=== PATIENT | male | born 1960 | race African-American/Black ===

== ENCOUNTER 2020-03-27 10:22 | Emergency (ER) | payer OTHER ==
[~2020-03-27] VITALS: Ht 172.7 cm; Wt 90.9 kg
[~2020-03-27 10:22] MED LIST: NOCURR
[2020-03-27] MEDS ORDERED: ACETAMINOPHEN 325 MG TABLET PO ONE (11:00)
[2020-03-27] MEDS ORDERED: BACITRACIN 0.9 GM PACKET OINTMENT TP ONE (11:00)
[2020-03-27] MEDS ORDERED: PERTUSS(ACELL),DIPH,TET VAC/PF 0.5 ML VIAL IM ONE (11:00)
[2020-03-27 11:15] VITALS: BP 154/86
== END 2020-03-27 12:27 | disposition home or self-care (01) ==
LOC: EMS 10:22
DX: S51.001A Unspecified open wound of right elbow, initial encounter (principal); W22.8XXA Striking against or struck by other objects, initial encounter; Y93.89 Activity, other specified; Y92.89 Other specified places as the place of occurrence of the external cause; Y99.8 Other external cause status
CPT/HCPCS: 90471; 90715; 99406

== ENCOUNTER 2020-04-09 10:25 | Inpatient (IN) | payer OTHER ==
[~2020-04-09] VITALS: Ht 172.7 cm; Wt 100.7 kg
[2020-04-09 12:24] LABS: BASOPHILS % (AUTO) 0.3 % (0.0-2.0); EOSINOPHILS % (AUTO) 0 % (1.0-6.0); HEMATOCRIT 46.1 % (41-53); HEMOGLOBIN 15.3 g/dL (13.5-17.5); LYMPHOCYTES # (AUTO) 0.4 K/uL (1.0-4.8); LYMPHOCYTES % (AUTO) 2.1 % (22.0-44.0); MEAN CORPUSCULAR HEMOGLOBIN 30.4 pg (26.0-34.0); MEAN CORPUSCULAR HGB CONC 33.2 G/dL (31.0-37.0); MEAN CORPUSCULAR VOLUME 92 fL (80-100); MONOCYTES # (AUTO) 0.7 K/uL (0.1-1.0); MONOCYTES % (AUTO) 3.3 % (2.0-9.0); NEUTROPHILS # (AUTO) 19.3 K/uL (1.8-7.7); PLATELET COUNT (AUTO) 322 K/uL (150-450); RED BLOOD CELL COUNT(AUTO) 5.03 MIL/uL (4.50-5.90); RED CELL DISTRIBUTION WIDTH 14.5 % (11.5-14.5)
[2020-04-09 12:26] LABS: NEUTROPHILS % (AUTO) 94.3 % (40.0-70.0)
[2020-04-09 12:33] LABS: ANION GAP 8 mmol/L (8-16); CALCIUM, TOTAL 9.6 mg/dL (8.8-10.5); CARBON DIOXIDE 26 mmol/L (22-29); CHLORIDE 95 mmol/L (98-107); CREATININE 1.42 mg/dL (0.60-1.30); GLOMERULAR FILTR. RATE CALC > 60 mL/min (>60); GLUCOSE,RANDOM 297 mg/dL (70-110); POTASSIUM 3.9 mmol/L (3.5-5.1); SODIUM SERUM 129 mmol/L (136-145); UREA NITROGEN, BLOOD 10 mg/dL (7-18)
[2020-04-09 12:39] LABS: ALANINE AMINOTRANSFERASE 29 U/L (12-78); ALBUMIN 3.7 g/dL (3.4-5.0); ALKALINE PHOSPHATASE 84 U/L (46-116); ASPARTATE AMINOTRANSFERASE 13 U/L (15-37); BILIRUBIN,TOTAL 0.5 mg/dL (0.1-1.0); TOTAL PROTEIN, SERUM 8.8 g/dL (6.4-8.2)
[2020-04-09 12:44] LABS: LACTIC ACID 1.9 mmol/L (0.4-2.0)
[2020-04-09] MEDS ORDERED: VANCOMYCIN HCL 1 GM/D5% WATER 200 ML IV ONE (13:15)
[2020-04-09] MEDS ORDERED: SODIUM CHLORIDE 0.9% 1,000 ML IV ONE ×3 (13:15→16:00)
[2020-04-09] MEDS ORDERED: PIPERACILLIN/TAZO 3.375 GM/D5W 50 ML IV ONE (13:15)
[2020-04-09] MEDS ORDERED: SODIUM CHLORIDE 0.9% 100 ML ONE (13:19)
[2020-04-09] MEDS ORDERED: IOVERSOL 350 MG/ML 100 ML VIAL ONE (13:19)
[2020-04-09] MEDS ORDERED: MORPHINE SULFATE 2 MG/ML SYRINGE IVP PRN (13:30)
[2020-04-09] MEDS ORDERED: DEXTROSE 50%-WATER 25 GM/50 ML SYRINGE IVP PRN (13:30)
[2020-04-09] MEDS: HEPARIN SODIUM,PORCINE 5,000 UNITS/ML VIAL SQ SCH ×2 (15:32→23:15)
[2020-04-09 16:29] LABS: COVID AG,FIA SOURCE NASAL SWAB
[2020-04-09 16:39] LABS: APPEARANCE,URINE CLEAR (CLEAR); BILIRUBIN,URINE NEGATIVE (NEGATIVE); GLUCOSE, URINE (UA) >=1000 mg/dL (NEGATIVE); KETONES,URINE NEGATIVE (NEGATIVE); LEUKOCYTE ESTERASE ,URINE NEGATIVE (NEGATIVE); NITRATE,URINE NEGATIVE (NEGATIVE); OCCULT BLOOD,URINE TRACE (NEGATIVE); PH,URINE 5.5 (5.0-8.0); PROTEIN,URINE POS 1+ (NEGATIVE); UROBILINOGEN,URINE 0.2 mg/dL (<=1.0)
[2020-04-09 16:43] LABS: AMPHET/METH SCREEN,URINE POSITIVE (NEGATIVE); BARBITURATE SCREEN, URINE NEGATIVE (NEGATIVE); BENZODIAZEPINES SCREEN,URINE NEGATIVE (NEGATIVE); CANNABINOID SCREEN,URINE POSITIVE (NEGATIVE); COCAINE SCREEN,URINE NEGATIVE (NEGATIVE); METHADONE SCREEN, URINE NEGATIVE (NEGATIVE); OPIATE SCREEN,URINE NEGATIVE (NEGATIVE)
[2020-04-09 16:44] LABS: PHENCYCLIDINE SCREEN,URINE NEGATIVE (NEGATIVE)
[2020-04-09 16:51] LABS: BACTERIA,URINE Rare /HPF (None Seen); SQUAMOUS EPITHELIAL CELL,UR Rare /LPF (None Seen); WBC,URINE 0-2 /HPF (0-5)
[2020-04-09] MEDS ORDERED: FLUTICASONE/SALMETEROL 250-50 MCG/INH INHALER [60] IH ONE (17:30)
[2020-04-09] MEDS: PIPERACILLIN/TAZO 3.375 GM/D5W 50 ML IV SCH (19:53)
[2020-04-09] MEDS: VANCOMYCIN HCL 1 GM/D5% WATER 200 ML IV SCH ×2 (21:00→22:58)
[2020-04-09 21:38] VITALS: BP 157/92
[2020-04-09] MEDS: DOCUSATE SODIUM 100 MG CAPSULE PO SCH (22:57)
[2020-04-09] MEDS: ACETAMINOPHEN 325 MG TABLET PO PRN (23:15)
[2020-04-09] MEDS: INSULIN LISPRO 100 UNITS/ML SQ PRN (23:16)
[2020-04-09 23:41] LABS: GLUCOMETER DEV NAME(LOC) 6N.1; GLUCOSE,POINT OF CARE 288 MG/DL (70-110)
[2020-04-10 00:20] VITALS: BP 132/69
[2020-04-10] MEDS: PIPERACILLIN/TAZO 3.375 GM/D5W 50 ML IV SCH ×4 (03:08→21:02)
[2020-04-10 05:48] VITALS: BP 121/79
[2020-04-10] MEDS: ACETAMINOPHEN 325 MG TABLET PO PRN ×2 (06:05→15:30)
[2020-04-10] MEDS: INSULIN LISPRO 100 UNITS/ML SQ PRN ×4 (06:06→19:36)
[2020-04-10 06:57] LABS: GLUCOMETER DEV NAME(LOC) 6S.1; GLUCOSE,POINT OF CARE 188 MG/DL (70-110)
[2020-04-10 07:06] LABS: BASOPHILS % (AUTO) 0.7 % (0.0-2.0); EOSINOPHILS % (AUTO) 0.1 % (1.0-6.0); HEMATOCRIT 40.4 % (41-53); HEMOGLOBIN 13.5 g/dL (13.5-17.5); LYMPHOCYTES # (AUTO) 0.7 K/uL (1.0-4.8); LYMPHOCYTES % (AUTO) 3.9 % (22.0-44.0); MEAN CORPUSCULAR HEMOGLOBIN 30.5 pg (26.0-34.0); MEAN CORPUSCULAR HGB CONC 33.4 G/dL (31.0-37.0); MEAN CORPUSCULAR VOLUME 91 fL (80-100); MONOCYTES # (AUTO) 0.8 K/uL (0.1-1.0); MONOCYTES % (AUTO) 4.6 % (2.0-9.0); NEUTROPHILS # (AUTO) 16.5 K/uL (1.8-7.7); PLATELET COUNT (AUTO) 271 K/uL (150-450); RED BLOOD CELL COUNT(AUTO) 4.44 MIL/uL (4.50-5.90); RED CELL DISTRIBUTION WIDTH 14.6 % (11.5-14.5)
[2020-04-10 07:11] LABS: NEUTROPHILS % (AUTO) 90.7 % (40.0-70.0)
[2020-04-10 07:16] LABS: ANION GAP 14 mmol/L (8-16); CALCIUM, TOTAL 8.6 mg/dL (8.8-10.5); CARBON DIOXIDE 22 mmol/L (22-29); CHLORIDE 97 mmol/L (98-107); CREATININE 1.27 mg/dL (0.60-1.30); GLOMERULAR FILTR. RATE CALC > 60 mL/min (>60); GLUCOSE,RANDOM 176 mg/dL (70-110); POTASSIUM 3.4 mmol/L (3.5-5.1); SODIUM SERUM 133 mmol/L (136-145); UREA NITROGEN, BLOOD 9 mg/dL (7-18)
[2020-04-10 08:26] VITALS: BP 114/62
[2020-04-10] MEDS: FAMOTIDINE 20 MG TABLET PO SCH (08:41)
[2020-04-10] MEDS: ASPIRIN 81 MG CHEWABLE TABLET PO SCH (08:41)
[2020-04-10] MEDS: HEPARIN SODIUM,PORCINE 5,000 UNITS/ML VIAL SQ SCH ×2 (08:42→15:30)
[2020-04-10] MEDS: DOCUSATE SODIUM 100 MG CAPSULE PO SCH ×2 (08:42→21:01)
[2020-04-10] MEDS ORDERED: POTASSIUM CHL 10 MEQ/WATER 50 ML IV PRN (09:00)
[2020-04-10] MEDS ORDERED: POTASSIUM CHLORIDE 20 MEQ ER TABLET PO PRN (09:00)
[2020-04-10] MEDS: VANCOMYCIN HCL 1 GM/D5% WATER 200 ML IV SCH ×2 (10:00→21:31)
[2020-04-10] MEDS: SODIUM CHLORIDE 0.9% 1,000 ML IV SCH ×2 (15:17→17:00)
[2020-04-10 16:20] VITALS: BP 140/77
[2020-04-10 17:36] LABS: GLUCOMETER DEV NAME(LOC) 6N.2; GLUCOSE,POINT OF CARE 189 MG/DL (70-110)
[2020-04-10 18:16] LABS: GLUCOMETER DEV NAME(LOC) 6N.1; GLUCOSE,POINT OF CARE 167 MG/DL (70-110)
[2020-04-10 19:30] VITALS: BP 115/65
[2020-04-10 21:20] LABS: GLUCOMETER DEV NAME(LOC) 6N.2; GLUCOSE,POINT OF CARE 194 MG/DL (70-110)
[2020-04-10 22:14] LABS: GLUCOMETER DEV NAME(LOC) 6S.1; GLUCOSE,POINT OF CARE 207 MG/DL (70-110)
[2020-04-10 23:34] VITALS: BP 146/76
[2020-04-11] MEDS: HEPARIN SODIUM,PORCINE 5,000 UNITS/ML VIAL SQ SCH ×4 (00:24→23:18)
[2020-04-11] MEDS: ACETAMINOPHEN 325 MG TABLET PO PRN ×2 (00:25→15:24)
[2020-04-11] MEDS: OxyCODONE HCL/ACETAMINOPHEN 5-325 MG TABLET PO PRN (00:28)
[2020-04-11 05:12] VITALS: BP 128/72
[2020-04-11] MEDS: INSULIN LISPRO 100 UNITS/ML SQ PRN ×4 (06:58→21:48)
[2020-04-11 07:13] LABS: GLUCOMETER DEV NAME(LOC) 6N.2; GLUCOSE,POINT OF CARE 154 MG/DL (70-110)
[2020-04-11] MEDS: PIPERACILLIN/TAZO 3.375 GM/D5W 50 ML IV SCH ×3 (08:27→21:46)
[2020-04-11] MEDS: DOCUSATE SODIUM 100 MG CAPSULE PO SCH ×3 (08:28→21:46)
[2020-04-11] MEDS: ASPIRIN 81 MG CHEWABLE TABLET PO SCH (08:28)
[2020-04-11] MEDS: FAMOTIDINE 20 MG TABLET PO SCH (08:28)
[2020-04-11 09:02] VITALS: BP 113/98
[2020-04-11] MEDS: VANCOMYCIN HCL 1 GM/D5% WATER 200 ML IV SCH (11:26)
[2020-04-11 13:18] LABS: BASOPHILS % (AUTO) 0.9 % (0.0-2.0); EOSINOPHILS % (AUTO) 0.3 % (1.0-6.0); HEMATOCRIT 42.7 % (41-53); HEMOGLOBIN 14.1 g/dL (13.5-17.5); LYMPHOCYTES # (AUTO) 1.1 K/uL (1.0-4.8); LYMPHOCYTES % (AUTO) 9.7 % (22.0-44.0); MEAN CORPUSCULAR HEMOGLOBIN 30.3 pg (26.0-34.0); MEAN CORPUSCULAR HGB CONC 33.1 G/dL (31.0-37.0); MEAN CORPUSCULAR VOLUME 92 fL (80-100); MONOCYTES # (AUTO) 0.8 K/uL (0.1-1.0); MONOCYTES % (AUTO) 6.6 % (2.0-9.0); NEUTROPHILS # (AUTO) 9.5 K/uL (1.8-7.7); NEUTROPHILS % (AUTO) 82.5 % (40.0-70.0); PLATELET COUNT (AUTO) 276 K/uL (150-450); RED BLOOD CELL COUNT(AUTO) 4.65 MIL/uL (4.50-5.90); RED CELL DISTRIBUTION WIDTH 14.6 % (11.5-14.5)
[2020-04-11] MEDS: SODIUM CHLORIDE 0.9% 1,000 ML IV SCH ×2 (13:28→23:18)
[2020-04-11 13:31] LABS: ANION GAP 10 mmol/L (8-16); CALCIUM, TOTAL 8.8 mg/dL (8.8-10.5); CARBON DIOXIDE 23 mmol/L (22-29); CHLORIDE 97 mmol/L (98-107); CREATININE 1.13 mg/dL (0.60-1.30); GLOMERULAR FILTR. RATE CALC > 60 mL/min (>60); GLUCOSE,RANDOM 159 mg/dL (70-110); POTASSIUM 3.6 mmol/L (3.5-5.1); SODIUM SERUM 130 mmol/L (136-145); UREA NITROGEN, BLOOD 12 mg/dL (7-18)
[2020-04-11 15:35] VITALS: BP 112/65
[2020-04-11 20:22] VITALS: BP 126/66
[2020-04-11 21:40] LABS: GLUCOMETER DEV NAME(LOC) 6S.1; GLUCOSE,POINT OF CARE 167 MG/DL (70-110)
[2020-04-11 21:40] LABS: GLUCOMETER DEV NAME(LOC) 6S.1; GLUCOSE,POINT OF CARE 164 MG/DL (70-110)
[2020-04-11] MEDS: VANCOMYCIN HCL 1.25 GM in DEXTROSE 5%-WATER 250 ML IV SCH (21:46)
[2020-04-12 00:06] VITALS: BP 128/65
[2020-04-12] MEDS: PIPERACILLIN/TAZO 3.375 GM/D5W 50 ML IV SCH ×4 (03:17→20:09)
[2020-04-12 05:26] VITALS: BP 140/86
[2020-04-12] MEDS: OxyCODONE HCL/ACETAMINOPHEN 5-325 MG TABLET PO PRN (05:39)
[2020-04-12] MEDS: INSULIN LISPRO 100 UNITS/ML SQ PRN ×4 (05:40→21:19)
[2020-04-12 07:47] LABS: GLUCOMETER DEV NAME(LOC) 6N.2; GLUCOSE,POINT OF CARE 221 MG/DL (70-110)
[2020-04-12 07:47] LABS: GLUCOMETER DEV NAME(LOC) 6S.1; GLUCOSE,POINT OF CARE 174 MG/DL (70-110)
[2020-04-12 08:22] VITALS: BP 122/67
[2020-04-12 08:26] LABS: ANION GAP 14 mmol/L (8-16); CALCIUM, TOTAL 8.6 mg/dL (8.8-10.5); CARBON DIOXIDE 21 mmol/L (22-29); CHLORIDE 98 mmol/L (98-107); CREATININE 1.09 mg/dL (0.60-1.30); GLOMERULAR FILTR. RATE CALC > 60 mL/min (>60); GLUCOSE,RANDOM 154 mg/dL (70-110); POTASSIUM 3.6 mmol/L (3.5-5.1); SODIUM SERUM 133 mmol/L (136-145); UREA NITROGEN, BLOOD 11 mg/dL (7-18)
[2020-04-12] MEDS: HEPARIN SODIUM,PORCINE 5,000 UNITS/ML VIAL SQ SCH ×2 (09:14→15:33)
[2020-04-12] MEDS: DOCUSATE SODIUM 100 MG CAPSULE PO SCH ×2 (09:14→21:00)
[2020-04-12] MEDS: FAMOTIDINE 20 MG TABLET PO SCH (09:14)
[2020-04-12] MEDS: ASPIRIN 81 MG CHEWABLE TABLET PO SCH (09:14)
[2020-04-12] MEDS: SODIUM CHLORIDE 0.9% 1,000 ML IV SCH ×3 (09:16→20:09)
[2020-04-12] MEDS: VANCOMYCIN HCL 1.25 GM in DEXTROSE 5%-WATER 250 ML IV SCH ×2 (10:13→21:09)
[2020-04-12 12:40] LABS: GLUCOMETER DEV NAME(LOC) 6S.1; GLUCOSE,POINT OF CARE 263 MG/DL (70-110)
[2020-04-12 14:46] VITALS: BP 135/77
[2020-04-12 20:24] VITALS: BP 144/72
[2020-04-12 23:16] LABS: GLUCOMETER DEV NAME(LOC) 6N.2; GLUCOSE,POINT OF CARE 197 MG/DL (70-110)
[2020-04-12 23:16] LABS: GLUCOMETER DEV NAME(LOC) 6N.2; GLUCOSE,POINT OF CARE 211 MG/DL (70-110)
[2020-04-12 23:46] VITALS: BP 133/65
[2020-04-13] MEDS: HEPARIN SODIUM,PORCINE 5,000 UNITS/ML VIAL SQ SCH ×2 (00:12→08:49)
[2020-04-13] MEDS: ACETAMINOPHEN 325 MG TABLET PO PRN (00:12)
[2020-04-13] MEDS: PIPERACILLIN/TAZO 3.375 GM/D5W 50 ML IV SCH ×2 (03:30→08:50)
[2020-04-13 04:38] VITALS: BP 115/70
[2020-04-13 07:47] VITALS: BP 118/73
[2020-04-13 08:14] LABS: GLUCOMETER DEV NAME(LOC) 6N.2; GLUCOSE,POINT OF CARE 157 MG/DL (70-110)
[2020-04-13 08:48] LABS: BASOPHILS % (AUTO) 0.8 % (0.0-2.0); EOSINOPHILS % (AUTO) 1.9 % (1.0-6.0); HEMATOCRIT 41.8 % (41-53); HEMOGLOBIN 13.9 g/dL (13.5-17.5); LYMPHOCYTES # (AUTO) 1.5 K/uL (1.0-4.8); LYMPHOCYTES % (AUTO) 19.4 % (22.0-44.0); MEAN CORPUSCULAR HEMOGLOBIN 30.7 pg (26.0-34.0); MEAN CORPUSCULAR HGB CONC 33.3 G/dL (31.0-37.0); MEAN CORPUSCULAR VOLUME 92 fL (80-100); MONOCYTES # (AUTO) 0.7 K/uL (0.1-1.0); MONOCYTES % (AUTO) 8.8 % (2.0-9.0); NEUTROPHILS # (AUTO) 5.2 K/uL (1.8-7.7); NEUTROPHILS % (AUTO) 69.1 % (40.0-70.0); PLATELET COUNT (AUTO) 310 K/uL (150-450); RED BLOOD CELL COUNT(AUTO) 4.54 MIL/uL (4.50-5.90); RED CELL DISTRIBUTION WIDTH 14.2 % (11.5-14.5)
[2020-04-13] MEDS: DOCUSATE SODIUM 100 MG CAPSULE PO SCH (08:49)
[2020-04-13] MEDS: FAMOTIDINE 20 MG TABLET PO SCH (08:49)
[2020-04-13] MEDS: ASPIRIN 81 MG CHEWABLE TABLET PO SCH (08:49)
[2020-04-13 09:14] LABS: ANION GAP 12 mmol/L (8-16); CALCIUM, TOTAL 8.6 mg/dL (8.8-10.5); CARBON DIOXIDE 22 mmol/L (22-29); CHLORIDE 101 mmol/L (98-107); CREATININE 0.95 mg/dL (0.60-1.30); GLOMERULAR FILTR. RATE CALC > 60 mL/min (>60); GLUCOSE,RANDOM 177 mg/dL (70-110); POTASSIUM 3.7 mmol/L (3.5-5.1); SODIUM SERUM 135 mmol/L (136-145); UREA NITROGEN, BLOOD 10 mg/dL (7-18); VANCOMYCIN,RANDOM 9.5 mcg/mL (25.0-50.0)
[2020-04-13] MEDS: VANCOMYCIN HCL 1.25 GM in DEXTROSE 5%-WATER 250 ML IV SCH (09:54)
[2020-04-13] MEDS ORDERED: BACTDSB PO (11:54)
[2020-04-13] MEDS ORDERED: METF-960 PO (11:55)
[2020-04-13] MEDS: INSULIN LISPRO 100 UNITS/ML SQ PRN ×2 (12:27→17:41)
[2020-04-13 12:30] VITALS: BP 117/73
[2020-04-13 15:44] VITALS: BP 138/81
[2020-04-13] MEDS ORDERED: VANCOMYCIN HCL 1 GM/D5% WATER 200 ML IV SCH (16:00)
[2020-04-13 20:03] LABS: GLUCOMETER DEV NAME(LOC) 6S.1; GLUCOSE,POINT OF CARE 177 MG/DL (70-110)
[2020-04-13 20:03] LABS: GLUCOMETER DEV NAME(LOC) 6S.1; GLUCOSE,POINT OF CARE 260 MG/DL (70-110)
== END 2020-04-13 18:20 | disposition home or self-care (01) | DRG 720 ==
LOC: EMS 10:29 → 6N 13:27
PROVIDERS: ADMIT Internal Medicine; ATTEND Internal Medicine
DX: A41.9 Sepsis, unspecified organism (principal); U07.1 COVID-19; L03.113 Cellulitis of right upper limb; N17.9 Acute kidney failure, unspecified; E87.1 Hypo-osmolality and hyponatremia; E11.65 Type 2 diabetes mellitus with hyperglycemia; J12.82 Pneumonia due to coronavirus disease 2019; F12.90 Cannabis use, unspecified, uncomplicated; F19.10 Other psychoactive substance abuse, uncomplicated; Z79.899 Other long term (current) drug therapy; Z79.82 Long term (current) use of aspirin; Z91.19 Patient's noncompliance with other medical treatment and regimen
CPT/HCPCS: 73201; 73218; 83605; 86140; 87040; 87426; 97165; J1644; J2543; J3370; J3535; J7030; J7050; J7060; 36415-L1; 36415-TC; 71045-TC; 80202-TC; U0003

== ENCOUNTER 2020-10-04 12:37 | Emergency (ER) | payer OTHER ==
[~2020-10-04] VITALS: Ht 172.7 cm; Wt 97.7 kg
[~2020-10-04 12:37] MED LIST changes: +BACTDSB PO; +METF-960 PO; -NOCURR
[2020-10-04 12:48] VITALS: BP 130/73
[2020-10-04] MEDS ORDERED: SULFAMETHOX/TRIMETH DS 800-160 MG/TABLET PO ONE (16:00)
[2020-10-04] MEDS ORDERED: LIDOCAINE/PF 1% 2 ML VIAL IM ONE (16:00)
[2020-10-04] MEDS ORDERED: CefTRIAXone SODIUM 1 GM/VIAL IM ONE (16:00)
== END 2020-10-04 17:50 | disposition home or self-care (01) ==
LOC: EMS 12:40
DX: L03.311 Cellulitis of abdominal wall (principal); F12.90 Cannabis use, unspecified, uncomplicated; F15.90 Other stimulant use, unspecified, uncomplicated; Z79.84 Long term (current) use of oral hypoglycemic drugs
CPT/HCPCS: 96372; 99283; J0696; J3490

== ENCOUNTER 2020-10-10 20:02 | Emergency (ER) | payer OTHER ==
[~2020-10-10] VITALS: Ht 172.7 cm; Wt 100.0 kg
[~2020-10-10 20:02] MED LIST changes: -BACTDSB PO
[2020-10-10 20:22] VITALS: BP 141/77
[2020-10-10 20:43] LABS: GLUCOSE,POINT OF CARE 202 MG/DL (70-110)
== END 2020-10-10 20:48 | disposition home or self-care (01) ==
LOC: EMS 20:04
DX: L02.211 Cutaneous abscess of abdominal wall (principal); F12.90 Cannabis use, unspecified, uncomplicated; F15.90 Other stimulant use, unspecified, uncomplicated; E11.9 Type 2 diabetes mellitus without complications; Z79.84 Long term (current) use of oral hypoglycemic drugs
CPT/HCPCS: 82948; 82962; 99282

== ENCOUNTER 2020-11-21 07:56 | Emergency (ER) | payer OTHER ==
[~2020-11-21] VITALS: Ht 172.7 cm; Wt 90.9 kg
[2020-11-21] MEDS ORDERED: LIDOCAINE 1% 10 ML VIAL ID ONE (09:15)
[2020-11-21] MEDS ORDERED: SULFAMETHOX/TRIMETH DS 800-160 MG/TABLET PO ONE (10:15)
[2020-11-21] MEDS ORDERED: ACETAMINOPHEN 325 MG TABLET PO ONE (10:15)
[2020-11-21] MEDS ORDERED: CefTRIAXone SODIUM 1 GM/VIAL IM ONE (10:15)
[2020-11-21] MEDS ORDERED: LIDOCAINE/PF 1% 2 ML VIAL IM ONE (10:15)
[2020-11-21 10:58] VITALS: BP 126/3
== END 2020-11-21 11:06 | disposition home or self-care (01) ==
LOC: EMS 07:58
DX: L02.416 Cutaneous abscess of left lower limb (principal); L03.116 Cellulitis of left lower limb; E11.9 Type 2 diabetes mellitus without complications; F12.90 Cannabis use, unspecified, uncomplicated; F19.90 Other psychoactive substance use, unspecified, uncomplicated; Z79.84 Long term (current) use of oral hypoglycemic drugs
CPT/HCPCS: 10060; 82962; 96372; 99284; J0696; J3490 ×2

== ENCOUNTER 2020-11-22 13:19 | Emergency (ER) | payer OTHER ==
[~2020-11-22] VITALS: Ht 172.7 cm; Wt 90.9 kg
[2020-11-22 13:23] VITALS: BP 127/70
== END 2020-11-22 14:40 | disposition home or self-care (01) ==
LOC: EMS 13:23
DX: L02.416 Cutaneous abscess of left lower limb (principal); E11.9 Type 2 diabetes mellitus without complications; F12.90 Cannabis use, unspecified, uncomplicated; F19.90 Other psychoactive substance use, unspecified, uncomplicated; Z79.84 Long term (current) use of oral hypoglycemic drugs
CPT/HCPCS: 82962; 99282

== ENCOUNTER 2020-11-24 23:42 | Emergency (ER) | payer OTHER ==
[~2020-11-24] VITALS: Ht 172.7 cm; Wt 90.9 kg
[2020-11-25 00:41] VITALS: BP 127/81
== END 2020-11-25 04:24 | disposition left against medical advice (07) ==
LOC: EMS 23:45
DX: Z53.21 Procedure and treatment not carried out due to patient leaving prior to being seen by health care provider (principal)

== ENCOUNTER 2021-01-04 22:46 | Emergency (ER) | payer OTHER ==
[~2021-01-04] VITALS: Ht 172.7 cm; Wt 90.9 kg
[2021-01-04 22:52] VITALS: BP 154/74
[2021-01-04] MEDS ORDERED: ACETAMINOPHEN 500 MG TABLET PO ONE (23:30)
[2021-01-04] MEDS ORDERED: ValACYclovir HCL 500 MG TABLET PO ONE (23:30)
[2021-01-04] MEDS ORDERED: DOXYCYCLINE HYCLATE 100 MG TABLET PO ONE (23:30)
[2021-01-04] MEDS ORDERED: CefTRIAXone SODIUM 1 GM/VIAL IM ONE (23:30)
[2021-01-04] MEDS ORDERED: LIDOCAINE/PF 1% 2 ML VIAL IM ONE (23:30)
[2021-01-04 23:35] LABS: APPEARANCE,URINE CLEAR (CLEAR); BILIRUBIN,URINE NEGATIVE (NEGATIVE); GLUCOSE, URINE (UA) >=1000 mg/dL (NEGATIVE); KETONES,URINE NEGATIVE (NEGATIVE); LEUKOCYTE ESTERASE ,URINE NEGATIVE (NEGATIVE); NITRATE,URINE NEGATIVE (NEGATIVE); OCCULT BLOOD,URINE NEGATIVE (NEGATIVE); PH,URINE 5.5 (5.0-8.0); PROTEIN,URINE NEGATIVE (NEGATIVE); UROBILINOGEN,URINE 0.2 mg/dL (<=1.0)
[2021-01-04 23:38] LABS: BACTERIA,URINE Rare /HPF (None Seen); RBC,URINE None Seen /HPF (0-2); WBC,URINE 0-2 /HPF (0-5)
== END 2021-01-05 00:21 | disposition home or self-care (01) ==
LOC: EMS 22:47
DX: B00.9 Herpesviral infection, unspecified (principal); E11.9 Type 2 diabetes mellitus without complications; F12.90 Cannabis use, unspecified, uncomplicated; F19.90 Other psychoactive substance use, unspecified, uncomplicated; Z79.84 Long term (current) use of oral hypoglycemic drugs
CPT/HCPCS: 81001; 87491; 87591; 96372; 99284; J0696; J3490

== ENCOUNTER 2021-01-16 00:27 | Emergency (ER) | payer OTHER ==
[~2021-01-16] VITALS: Ht 172.7 cm; Wt 90.9 kg
[2021-01-16 00:56] VITALS: BP 113/67
== END 2021-01-16 01:48 | disposition home or self-care (01) ==
LOC: EMS 00:29
DX: B00.9 Herpesviral infection, unspecified (principal); E11.9 Type 2 diabetes mellitus without complications; F12.90 Cannabis use, unspecified, uncomplicated; F19.90 Other psychoactive substance use, unspecified, uncomplicated; Z79.84 Long term (current) use of oral hypoglycemic drugs
CPT/HCPCS: 99281; Z7502

== ENCOUNTER 2021-04-06 22:30 | Emergency (ER) | payer OTHER ==
[~2021-04-06] VITALS: Ht 170.2 cm; Wt 86.0 kg
[~2021-04-06 22:30] MED LIST changes: +METF-1211 PO; -METF-960 PO
[2021-04-06] MEDS ORDERED: FLUORESCEIN SODIUM 1 MG STRIP ONE (23:27)
[2021-04-06] MEDS ORDERED: PROPARACAINE HCL 0.5% 15 ML OPHTHALMIC SOLUTION OD ONE (23:30)
[2021-04-07] MEDS ORDERED: NEOMYCIN/BACITRACIN/POLYMYXIN B 3.5 GM OPHTHALMIC OINTMENT OD ONE
[2021-04-07] MEDS ORDERED: SULFACETAMIDE SODIUM 10% 15 ML OPHTHALMIC SOLUTION OD ONE
[2021-04-07 00:09] VITALS: BP 123/85
== END 2021-04-07 00:15 | disposition home or self-care (01) ==
LOC: EMS 22:31
DX: S05.01XA Injury of conjunctiva and corneal abrasion without foreign body, right eye, initial encounter (principal); E11.9 Type 2 diabetes mellitus without complications; Z79.84 Long term (current) use of oral hypoglycemic drugs; F12.90 Cannabis use, unspecified, uncomplicated; F15.90 Other stimulant use, unspecified, uncomplicated; X58.XXXA Exposure to other specified factors, initial encounter; Y93.89 Activity, other specified; Y92.89 Other specified places as the place of occurrence of the external cause; Y99.8 Other external cause status
CPT/HCPCS: 99283

== ENCOUNTER 2023-04-17 22:46 | Emergency (ER) | payer OTHER ==
[~2023-04-17] VITALS: Ht 172.7 cm; Wt 93.2 kg
[~2023-04-17 22:46] MED LIST changes: +CLIN-26 PO; +LEVO750T68 PO
[2023-04-17 23:29] VITALS: TEMP 97.9
[2023-04-18 02:33] LABS: BASOPHILS % (AUTO) 0.8 % (0.0-2.0); EOSINOPHILS % (AUTO) 0.8 % (1.0-6.0); HEMATOCRIT 44.5 % (41-53); HEMOGLOBIN 15.3 g/dL (13.5-17.5); LYMPHOCYTES # (AUTO) 1.2 K/uL (1.0-4.8); LYMPHOCYTES % (AUTO) 14.2 % (22.0-44.0); MEAN CORPUSCULAR HEMOGLOBIN 32.1 pg (26.0-34.0); MEAN CORPUSCULAR HGB CONC 34.4 G/dL (31.0-37.0); MEAN CORPUSCULAR VOLUME 93 fL (80-100); MONOCYTES # (AUTO) 0.9 K/uL (0.1-1.0); MONOCYTES % (AUTO) 10.5 % (2.0-9.0); NEUTROPHILS # (AUTO) 6.4 K/uL (1.8-7.7); NEUTROPHILS % (AUTO) 73.7 % (40.0-70.0); PLATELET COUNT (AUTO) 279 K/uL (150-450); RED BLOOD CELL COUNT(AUTO) 4.77 MIL/uL (4.50-5.90); RED CELL DISTRIBUTION WIDTH 13.7 % (11.5-14.5); WHITE BLOOD COUNT (AUTO) 8.6 K/uL (4.5-11.0)
[2023-04-18 02:43] LABS: ANION GAP 11 mmol/L (8-16); CALCIUM, TOTAL 9.4 mg/dL (8.8-10.5); CARBON DIOXIDE 27 mmol/L (22-29); CHLORIDE 98 mmol/L (98-107); CREATININE 1.12 mg/dL (0.60-1.30); GLOMERULAR FILTR. RATE CALC > 60 mL/min (>60); GLUCOSE,RANDOM 277 mg/dL (70-110); SODIUM SERUM 136 mmol/L (136-145); UREA NITROGEN, BLOOD 12 mg/dL (7-18)
[2023-04-18 02:50] LABS: TROPONIN I-HIGH SENSITIVITY 47 ng/L (<76)
[2023-04-18 02:56] LABS: ALCOHOL, BLOOD (SERUM) < 3 mg/dL (0-10)
[2023-04-18 03:01] LABS: ALANINE AMINOTRANSFERASE 20 U/L (12-78); ALBUMIN 3.6 g/dL (3.4-5.0); ALKALINE PHOSPHATASE 77 U/L (46-116); ASPARTATE AMINOTRANSFERASE 19 U/L (15-37); BILIRUBIN,TOTAL 0.5 mg/dL (0.1-1.0); CREATINE KINASE, TOTAL ONLY 320 U/L (39-308); TOTAL PROTEIN, SERUM 7.8 g/dL (6.4-8.2)
[2023-04-18 03:02] LABS: B-TYPE NATRIURETIC PEPTIDE 65 pg/mL (0-100)
[2023-04-18] MEDS ORDERED: KETOROLAC TROMETHAMINE 30 MG/ML VIAL ONE (03:55)
[2023-04-18] MEDS ORDERED: SODIUM CHLORIDE 0.9% 100 ML ONE (04:10)
[2023-04-18] MEDS ORDERED: IOHEXOL 350 MG/ML 100 ML VIAL ONE (04:10)
[2023-04-18] MEDS ORDERED: KETOROLAC TROMETHAMINE 30 MG/ML VIAL IVP ONE (04:15)
[2023-04-18] MEDS ORDERED: PEG 3350/NA SULF,BICARB,CL/KCL 4000 ML SOLUTION PO ONE (08:30)
[2023-04-18 09:00] VITALS: BP 135/75; PULSE 85; RESP 14
[2023-04-19 00:59] LABS: APPEARANCE,URINE CLEAR (CLEAR); BILIRUBIN,URINE NEGATIVE (NEGATIVE); COLOR,URINE YELLOW (YELLOW); GLUCOSE, URINE (UA) 300-500 mg/dL (NEGATIVE); LEUKOCYTE ESTERASE ,URINE NEGATIVE (NEGATIVE); NITRATE,URINE NEGATIVE (NEGATIVE); OCCULT BLOOD,URINE NEGATIVE (NEGATIVE); PH,URINE 6.5 (5.0-8.0); PH,URINE DRUG SCREEN 6.5 (5.0-8.0); PROTEIN,URINE 30-70 mg/dL (NEGATIVE); SPECIFIC GRAVITIY, URINE 1.027 (1.003-1.030)
[2023-04-19 01:10] LABS: BACTERIA,URINE None Seen /HPF (None Seen); RBC,URINE None Seen /HPF (0-2); SQUAMOUS EPITHELIAL CELL,UR None Seen /LPF (None Seen); WBC,URINE 0-2 /HPF (0-5)
[2023-04-19 01:13] LABS: ALCOHOL, URINE DRUG SCREEN NEGATIVE (NEGATIVE); AMPHET/METH SCREEN,URINE POSITIVE (NEGATIVE); BARBITURATE SCREEN, URINE NEGATIVE (NEGATIVE); BENZODIAZEPINES SCREEN,URINE NEGATIVE (NEGATIVE); CANNABINOID SCREEN,URINE NEGATIVE (NEGATIVE); COCAINE SCREEN,URINE NEGATIVE (NEGATIVE); METHADONE SCREEN, URINE NEGATIVE (NEGATIVE); OPIATE SCREEN,URINE POSITIVE (NEGATIVE); PHENCYCLIDINE SCREEN,URINE NEGATIVE (NEGATIVE)
[2023-04-19] MEDS ORDERED: LEVO-72 PO (07:53)
== END 2023-04-18 09:34 | disposition home or self-care (01) ==
LOC: EMS 23:06
DX: K59.00 Constipation, unspecified (principal); R10.84 Generalized abdominal pain; M19.90 Unspecified osteoarthritis, unspecified site; F17.210 Nicotine dependence, cigarettes, uncomplicated; F12.90 Cannabis use, unspecified, uncomplicated; F15.90 Other stimulant use, unspecified, uncomplicated; Z98.890 Other specified postprocedural states
CPT/HCPCS: 99285; 80053; 81001; 82550; 83880; 84484; 85025; 36415; 80307; 74177; 96374; 71045; 93005; G0480; J1885; Q9967; J7050

== ENCOUNTER 2023-04-18 19:15 | Inpatient (IN) | payer OTHER ==
[~2023-04-18] VITALS: Ht 172.7 cm; Wt 99.5 kg
[2023-04-18] MEDS ORDERED: MORPHINE SULFATE 2 MG/ML SYRINGE IVP ONE (23:00)
[2023-04-18] MEDS ORDERED: SODIUM CHLORIDE 0.9% 1,000 ML IV ONE (23:00)
[2023-04-18] MEDS ORDERED: ONDANSETRON HCL 4 MG/2 ML VIAL IVP ONE (23:00)
[2023-04-18] MEDS ORDERED: SODIUM PHOSPHATE,MONO-DIBASIC 133 ML ENEMA PR ONE (23:00)
[2023-04-18 23:15] LABS: BASOPHILS % (AUTO) 0.8 % (0.0-2.0); EOSINOPHILS % (AUTO) 0.4 % (1.0-6.0); HEMATOCRIT 44.6 % (41-53); HEMOGLOBIN 15.4 g/dL (13.5-17.5); LYMPHOCYTES # (AUTO) 1.1 K/uL (1.0-4.8); LYMPHOCYTES % (AUTO) 12.9 % (22.0-44.0); MEAN CORPUSCULAR HEMOGLOBIN 32.2 pg (26.0-34.0); MEAN CORPUSCULAR HGB CONC 34.6 G/dL (31.0-37.0); MEAN CORPUSCULAR VOLUME 93 fL (80-100); MONOCYTES # (AUTO) 0.8 K/uL (0.1-1.0); MONOCYTES % (AUTO) 9.9 % (2.0-9.0); NEUTROPHILS # (AUTO) 6.5 K/uL (1.8-7.7); PLATELET COUNT (AUTO) 288 K/uL (150-450); RED CELL DISTRIBUTION WIDTH 13.9 % (11.5-14.5); WHITE BLOOD COUNT (AUTO) 8.6 K/uL (4.5-11.0)
[2023-04-18 23:25] LABS: ANION GAP 11 mmol/L (8-16); CALCIUM, TOTAL 9.7 mg/dL (8.8-10.5); CARBON DIOXIDE 29 mmol/L (22-29); CHLORIDE 106 mmol/L (98-107); CREATININE 1.09 mg/dL (0.60-1.30); GLOMERULAR FILTR. RATE CALC > 60 mL/min (>60); GLUCOSE,RANDOM 192 mg/dL (70-110); SODIUM SERUM 146 mmol/L (136-145); UREA NITROGEN, BLOOD 11 mg/dL (7-18)
[2023-04-18 23:30] LABS: ALANINE AMINOTRANSFERASE 20 U/L (12-78); ALBUMIN 3.6 g/dL (3.4-5.0); ALKALINE PHOSPHATASE 74 U/L (46-116); ASPARTATE AMINOTRANSFERASE 18 U/L (15-37); BILIRUBIN,TOTAL 0.8 mg/dL (0.1-1.0); LIPASE 13 U/L (16-77); TOTAL PROTEIN, SERUM 8.3 g/dL (6.4-8.2)
[2023-04-18 23:32] LABS: TROPONIN I-HIGH SENSITIVITY 40 ng/L (<76)
[2023-04-19] MEDS ORDERED: HYDROmorphone HCL 2 MG/ML SYRINGE IVP ONE (02:00)
[2023-04-19] MEDS ORDERED: SODIUM CHLORIDE 0.9% 1,000 ML IV ONE (02:00)
[2023-04-19] MEDS ORDERED: AZITHROMYCIN 500 MG/NS 250 ML IV ONE (02:00)
[2023-04-19] MEDS ORDERED: CefTRIAXone 1 GM/DEXTROSE 50 ML IV ONE (02:00)
[2023-04-19 03:08] LABS: COVID AG,FIA SOURCE NASAL SWAB
[2023-04-19 03:35] VITALS: BP 146/93; PULSE 101; RESP 20; TEMP 98.4
[2023-04-19 03:36] LABS: SARS-COV2 (COVID) ANTIGEN,FIA Negative (Negative)
[2023-04-19] MEDS ORDERED: LEVO-72 PO (07:53)
[2023-04-19] MEDS ORDERED: SODIUM CHLORIDE 0.45% 500 ML IV ONE (08:00)
[2023-04-19] MEDS ORDERED: ACETAMINOPHEN 325 MG TABLET PO PRN (08:00)
[2023-04-19] MEDS ORDERED: HEPARIN SODIUM,PORCINE 5,000 UNITS/ML VIAL SQ SCH (08:00)
[2023-04-19] MEDS ORDERED: ONDANSETRON HCL 4 MG/2 ML VIAL IVP PRN (08:00)
[2023-04-19] MEDS ORDERED: MAGNESIUM HYDROXIDE SUSPENSION 30 ML UDCUP PO PRN (08:00)
[2023-04-19 08:03] VITALS: BP 133/72; PULSE 94; RESP 20; TEMP 98.7
[2023-04-19] MEDS ORDERED: DOCUSATE SODIUM 100 MG CAPSULE PO SCH (09:00)
[2023-04-19] MEDS ORDERED: FAMOTIDINE 20 MG TABLET PO SCH (09:00)
[2023-04-19] MEDS ORDERED: SODIUM CHLORIDE 0.45% 500 ML IV SCH (12:15)
[2023-04-19 14:47] VITALS: BP 144/86; PULSE 107; RESP 20; TEMP 99.1
== END 2023-04-19 15:00 | disposition home or self-care (01) | DRG 139 ==
LOC: EMS 19:17 → 6N 04-19 01:57
PROVIDERS: ADMIT Internal Medicine; ATTEND Internal Medicine
DX: J18.9 Pneumonia, unspecified organism (principal); E87.0 Hyperosmolality and hypernatremia; K59.00 Constipation, unspecified; E11.65 Type 2 diabetes mellitus with hyperglycemia; Z20.822 Contact with and (suspected) exposure to COVID-19; E66.9 Obesity, unspecified; E86.0 Dehydration; Z87.891 Personal history of nicotine dependence; Z79.899 Other long term (current) drug therapy; Z68.33 Body mass index [BMI] 33.0-33.9, adult
CPT/HCPCS: 74176; 76700; 80053; 83605; 83690; 84484; 85025; 87040; 99285; J0456; J0696; J1170; J1644; J2270; J2405; J7030

== ENCOUNTER 2023-09-01 09:39 | Emergency (ER) | payer OTHER ==
[~2023-09-01] VITALS: Ht 172.7 cm; Wt 100.0 kg
[~2023-09-01 09:39] MED LIST changes: -CLIN-26 PO; +LEVO-72 PO; -LEVO750T68 PO
[2023-09-01 09:52] VITALS: TEMP 98.2
[2023-09-01] MEDS ORDERED: METF-444 PO (09:55)
[2023-09-01 10:10] VITALS: BP 142/83; PULSE 103; RESP 16
[2023-09-01] MEDS: BACITRACIN 0.9 GM PACKET OINTMENT TP ONE (11:06)
[2023-09-01] MEDS ORDERED: BACI28.410 TP (11:11)
[2023-09-01] MEDS ORDERED: DOXY-354 PO (11:11)
== END 2023-09-01 11:20 | disposition home or self-care (01) ==
LOC: EMS 09:39
DX: S80.822A Blister (nonthermal), left lower leg, initial encounter (principal); E11.9 Type 2 diabetes mellitus without complications; F17.210 Nicotine dependence, cigarettes, uncomplicated; F12.90 Cannabis use, unspecified, uncomplicated; F15.10 Other stimulant abuse, uncomplicated; W57.XXXA Bitten or stung by nonvenomous insect and other nonvenomous arthropods, initial encounter; Y93.89 Activity, other specified; Y92.89 Other specified places as the place of occurrence of the external cause; Y99.8 Other external cause status
CPT/HCPCS: 82962; 97597; 99284

== ENCOUNTER 2024-05-01 15:15 | Emergency (ER) | payer OTHER ==
[~2024-05-01] VITALS: Ht 172.7 cm; Wt 102.3 kg
[~2024-05-01 15:15] MED LIST changes: +BACI28.410 TP; +DOXY-354 PO; -LEVO-72 PO; -METF-1211 PO; +METF-444 PO
[2024-05-01 15:25] VITALS: BP 132/82; PULSE 102; RESP 16; TEMP 98; O2SAT 98
[2024-05-01 15:31] LABS: COVID AG,FIA SOURCE NASAL SWAB
[2024-05-01 15:59] LABS: EOSINOPHILS % (AUTO) 2.3 % (1.0-6.0); HEMOGLOBIN 15.1 g/dL (13.5-17.5); LYMPHOCYTES # (AUTO) 1.4 K/uL (1.0-4.8); LYMPHOCYTES % (AUTO) 25.7 % (22.0-44.0); MEAN CORPUSCULAR HGB CONC 32.7 G/dL (31.0-37.0); MEAN CORPUSCULAR VOLUME 95 fL (80-100); MONOCYTES # (AUTO) 0.4 K/uL (0.1-1.0); MONOCYTES % (AUTO) 7.4 % (2.0-9.0); NEUTROPHILS # (AUTO) 3.4 K/uL (1.8-7.7); NEUTROPHILS % (AUTO) 63.6 % (40.0-70.0); PLATELET COUNT (AUTO) 227 K/uL (150-450); RED BLOOD CELL COUNT(AUTO) 4.85 MIL/uL (4.50-5.90); RED CELL DISTRIBUTION WIDTH 14.6 % (11.5-14.5); WHITE BLOOD COUNT (AUTO) 5.4 K/uL (4.5-11.0)
[2024-05-01 16:04] LABS: ANION GAP 5 mmol/L (8-16); CALCIUM, TOTAL 8.8 mg/dL (8.8-10.5); CARBON DIOXIDE 27 mmol/L (22-29); CHLORIDE 102 mmol/L (98-107); CREATININE 1.26 mg/dL (0.60-1.30); GLOMERULAR FILTR. RATE CALC > 60 mL/min (>60); GLUCOSE,RANDOM 278 mg/dL (70-110); SODIUM SERUM 134 mmol/L (136-145); UREA NITROGEN, BLOOD 15 mg/dL (7-18)
[2024-05-01 16:09] LABS: ALANINE AMINOTRANSFERASE 20 U/L (12-78); ALBUMIN 3.6 g/dL (3.4-5.0); ALKALINE PHOSPHATASE 72 U/L (46-116); ASPARTATE AMINOTRANSFERASE 19 U/L (15-37); BILIRUBIN,TOTAL 0.6 mg/dL (0.1-1.0); LIPASE 28 U/L (16-77); TOTAL PROTEIN, SERUM 7.6 g/dL (6.4-8.2)
[2024-05-01 16:41] LABS: INFLUENZA TYPE A NEGATIVE FOR TYPE A (NEGATIVE); INFLUENZA TYPE B NEGATIVE FOR TYPE B (NEGATIVE); SARS-COV2 (COVID) ANTIGEN,FIA Negative (Negative)
[2024-05-01] MEDS ORDERED: ONDA-104 PO (16:50)
[2024-05-01] MEDS: ONDANSETRON 4 MG TABLET PO ONE (17:16)
[2024-05-01] MEDS: FAMOTIDINE 20 MG TABLET PO ONE (17:16)
== END 2024-05-01 17:28 | disposition home or self-care (01) ==
LOC: EMS 15:15
DX: R11.2 Nausea with vomiting, unspecified (principal); R05.9 Cough, unspecified; M19.90 Unspecified osteoarthritis, unspecified site; E11.9 Type 2 diabetes mellitus without complications; F12.90 Cannabis use, unspecified, uncomplicated; F15.90 Other stimulant use, unspecified, uncomplicated; F17.210 Nicotine dependence, cigarettes, uncomplicated; Z98.890 Other specified postprocedural states; Z20.822 Contact with and (suspected) exposure to COVID-19
CPT/HCPCS: 99283; 87426; 80048; 80076; 83690; 85025; 87804; 36415; Q0162

== ENCOUNTER 2024-05-16 09:35 | Emergency (ER) | payer OTHER ==
[~2024-05-16] VITALS: Ht 172.7 cm; Wt 100.0 kg
[~2024-05-16 09:35] MED LIST changes: -BACI28.410 TP; -DOXY-354 PO; +ONDA-104 PO
[2024-05-16 09:43] VITALS: BP 132/87; PULSE 110; RESP 18; TEMP 98.5; O2SAT 100
[2024-05-16 10:06] LABS: GLUCOMETER DEV NAME(LOC) ERT.6; GLUCOSE,POINT OF CARE 239 MG/DL (70-110)
[2024-05-16] MEDS ORDERED: ACET-66 PO (12:10)
[2024-05-16] MEDS ORDERED: IBUP-1554 PO (12:10)
== END 2024-05-16 12:37 | disposition home or self-care (01) ==
LOC: EMS 09:48
DX: M79.601 Pain in right arm (principal); E11.65 Type 2 diabetes mellitus with hyperglycemia; M19.90 Unspecified osteoarthritis, unspecified site; F12.90 Cannabis use, unspecified, uncomplicated; F17.210 Nicotine dependence, cigarettes, uncomplicated; F15.90 Other stimulant use, unspecified, uncomplicated; Z98.890 Other specified postprocedural states
CPT/HCPCS: 82962; 99282

== ENCOUNTER 2024-08-02 17:19 | Emergency (ER) | payer OTHER ==
[~2024-08-02] VITALS: Ht 167.6 cm; Wt 75.0 kg
[~2024-08-02 17:19] MED LIST changes: +ACET-66 PO; +IBUP-1554 PO; -METF-444 PO; -ONDA-104 PO
[2024-08-02] MEDS ORDERED: DOXY-354 PO (22:37)
[2024-08-02] MEDS: DOXYCYCLINE HYCLATE 100 MG TABLET PO ONE (22:44)
[2024-08-02 23:24] VITALS: BP 133/85; PULSE 84; RESP 18; TEMP 97.3; O2SAT 98
== END 2024-08-02 23:27 | disposition home or self-care (01) ==
LOC: EMS 17:19
DX: S61.401A Unspecified open wound of right hand, initial encounter (principal); E11.9 Type 2 diabetes mellitus without complications; F12.90 Cannabis use, unspecified, uncomplicated; F17.210 Nicotine dependence, cigarettes, uncomplicated; F15.10 Other stimulant abuse, uncomplicated; X58.XXXA Exposure to other specified factors, initial encounter; Y93.89 Activity, other specified; Y92.89 Other specified places as the place of occurrence of the external cause; Y99.8 Other external cause status
CPT/HCPCS: 99283

== ENCOUNTER 2025-01-02 16:58 | Emergency (ER) | payer OTHER ==
[~2025-01-02] VITALS: Ht 172.7 cm; Wt 97.7 kg
[~2025-01-02 16:58] MED LIST changes: +ALBU18HF12 IH; +AZIT250T9 PO; +DOXY-354 PO; +PRED-554 PO
[2025-01-02] MEDS: SODIUM CHLORIDE 0.9% 1,000 ML IV ONE (18:30)
[2025-01-02] MEDS: LIDOCAINE 1% 10 ML VIAL ID ONE (19:00)
[2025-01-02 19:56] LABS: GLUCOMETER DEV NAME(LOC) ERT.7; GLUCOSE,POINT OF CARE 297 MG/DL (70-110)
[2025-01-02] MEDS: SODIUM CHLORIDE 0.9% 500 ML IRRIG SOLUTION BOTTLE IRRIG ONE (19:57)
[2025-01-02] MEDS: BACITRACIN 0.9 GM PACKET OINTMENT TP ONE (19:57)
[2025-01-02] MEDS: PERTUSS(ACELL),DIPH,TET/PF 0.5 ML SYRINGE [ADULT] IM. ONE (19:57)
[2025-01-02 21:28] VITALS: BP 140/83; PULSE 115; RESP 18; TEMP 98.1; O2SAT 98
== END 2025-01-02 22:06 | disposition home or self-care (01) ==
LOC: EMS 16:58
DX: S51.811A Laceration without foreign body of right forearm, initial encounter (principal); E11.65 Type 2 diabetes mellitus with hyperglycemia; M19.90 Unspecified osteoarthritis, unspecified site; F12.90 Cannabis use, unspecified, uncomplicated; Z79.52 Long term (current) use of systemic steroids; F17.210 Nicotine dependence, cigarettes, uncomplicated; F15.90 Other stimulant use, unspecified, uncomplicated; Z98.890 Other specified postprocedural states; Z79.899 Other long term (current) drug therapy; W26.8XXA Contact with other sharp object(s), not elsewhere classified, initial encounter; Y93.89 Activity, other specified; Y92.89 Other specified places as the place of occurrence of the external cause; Y99.8 Other external cause status
CPT/HCPCS: 99283; 96360; 82962; 90715; 90471; 12002; J3490; J7030

== ENCOUNTER 2025-01-22 21:11 | Emergency (ER) | payer OTHER ==
[~2025-01-22] VITALS: Ht 172.7 cm; Wt 97.7 kg
[~2025-01-22 21:11] MED LIST changes: -AZIT250T9 PO
[2025-01-22 21:33] VITALS: BP 135/86; PULSE 113; RESP 18; TEMP 97.5; O2SAT 99
[2025-01-23] MEDS: MUPIROCIN CALCIUM 2% 15 GM CREAM TP ONE (00:44)
== END 2025-01-23 01:08 | disposition home or self-care (01) ==
LOC: EMS 21:14
DX: S51.811D Laceration without foreign body of right forearm, subsequent encounter (principal); E11.9 Type 2 diabetes mellitus without complications; M19.90 Unspecified osteoarthritis, unspecified site; F12.90 Cannabis use, unspecified, uncomplicated; F17.210 Nicotine dependence, cigarettes, uncomplicated; F15.90 Other stimulant use, unspecified, uncomplicated; Z98.890 Other specified postprocedural states; Z79.52 Long term (current) use of systemic steroids; X58.XXXD Exposure to other specified factors, subsequent encounter
CPT/HCPCS: 99283

== ENCOUNTER 2025-01-24 02:06 | Emergency (ER) | payer OTHER ==
[~2025-01-24] VITALS: Ht 172.7 cm; Wt 97.7 kg
[2025-01-24 02:33] VITALS: BP 142/84; PULSE 113; RESP 20; TEMP 98.6; O2SAT 99
[2025-01-24] MEDS: IBUPROFEN 400 MG TABLET PO ONE (05:34)
[2025-01-24] MEDS: ACETAMINOPHEN 500 MG TABLET PO ONE (05:34)
[2025-01-24] MEDS: DOXYCYCLINE HYCLATE 100 MG TABLET PO ONE (05:34)
== END 2025-01-24 05:52 | disposition home or self-care (01) ==
LOC: EMS 02:07
DX: S61.401A Unspecified open wound of right hand, initial encounter (principal); E11.9 Type 2 diabetes mellitus without complications; M19.90 Unspecified osteoarthritis, unspecified site; F12.90 Cannabis use, unspecified, uncomplicated; F17.210 Nicotine dependence, cigarettes, uncomplicated; F15.90 Other stimulant use, unspecified, uncomplicated; Z98.890 Other specified postprocedural states; Z79.52 Long term (current) use of systemic steroids; Z79.899 Other long term (current) drug therapy; X58.XXXA Exposure to other specified factors, initial encounter; Y93.89 Activity, other specified; Y92.89 Other specified places as the place of occurrence of the external cause; Y99.8 Other external cause status
CPT/HCPCS: 99284; Z7502; Z7610

== ENCOUNTER 2025-02-10 03:04 | Emergency (ER) | payer OTHER ==
[~2025-02-10] VITALS: Ht 172.7 cm; Wt 97.7 kg
[2025-02-10 06:08] VITALS: BP 117/68; PULSE 88; RESP 16; TEMP 97.3; O2SAT 100
== END 2025-02-10 06:37 | disposition home or self-care (01) ==
LOC: EMS 03:05
DX: R51.9 Headache, unspecified (principal); R06.02 Shortness of breath; E11.9 Type 2 diabetes mellitus without complications; M19.90 Unspecified osteoarthritis, unspecified site; F12.90 Cannabis use, unspecified, uncomplicated; F15.10 Other stimulant abuse, uncomplicated; F17.210 Nicotine dependence, cigarettes, uncomplicated
CPT/HCPCS: 82962; 93005; 99283